=== PATIENT | male | born 1980 | race Caucasian/White ===

== ENCOUNTER → 2022-01-07 17:57 | Outpatient (CLI) | payer OTHER, SELFPAY ==
[2022-01-07 19:01] LABS: COVID19 -Nasal RAPID Negative (Negative)
== END ==
PROVIDERS: PCP Neuromusculoskeletal Medicine & OMM; Visit Provider Nurse Practitioner Family
DX: Z20.822 Contact with and (suspected) exposure to COVID-19 (principal)
CPT/HCPCS: 87635

== ENCOUNTER 2022-01-10 16:36 | Observation (INO) | payer OTHER, SELFPAY ==
[2022-01-01 11:14] VITALS: BMI 35.1
[2022-01-09] VITALS (14 sets, daily range): BP systolic 112–152; BP diastolic 54–98; PULSE 65–94; RESP 10–21; TEMP 36–36.2; O2SAT 93–99; BMI 35.1
--- NOTE | 2022-01-09 | DI.RAD.S_ITS ---
PROCEDURE: XR LUMBAR SPINE 2-3V INDICATIONS: L5-S1 TLIF TECHNIQUE: 3 views of the lumbar spine were acquired. COMPARISON: [facility], MR, MR LUMBAR SPINE WITHOUT CONTRAST, 10/23/2021, 12:09. [facility], CR, XR LUMBAR SPINE WITH OLBIQUES PLUS FLEXION EXTENSION, 09/14/2021, 15:56. FINDINGS: Intraoperative images demonstrating L5-S1 fusion with intervertebral spacer. Hardware is intact with relatively good anatomic alignment. There appears to be trace anterolisthesis of L5 on S1. However, this could be projectional. IMPRESSION: Intraoperative L5-S1 fusion. Dictated by: Moraima Yancey M.D. on 01/09/2022 at 21:12 Approved by: Moraima Yancey M.D. on 01/09/2022 at 21:12
[2022-01-09] MEDS: LACTATED RINGERS 1,000 ML 42 ML IV ×2 (11:00→13:07)
--- NOTE | 2022-01-09 12:09 | PM.PREOP ---
Pre-operative Note COVID-19 COVID-19 status: Negative Result date/Date tested (Pos, Neg/Pending): 01/08/22 Criteria for continued procedure: Expected advancement of disease process, Possibility delay results in more complex future surgery or treatment, Increased loss of function, Continuing or worsening of significant or severe pain, Deterioration of the patient's condition or overall health and Delay expected to result in less-positive ultimate med/surg outcome Interval Note History & Physical reviewed/Exam performed by Physician: Yes Changes to H&P: No
[2022-01-09] MEDS: CEFAZOLIN 2 GM/20 ML SYRINGE IV ×2 (12:51→21:01)
--- NOTE | 2022-01-09 13:01 | SUR.OPER ---
Prone on spine table, head in foam head support, padded chest and pelvic supports, gel pad at knees, lower legs supported by pillows; nipples, genitalia and toes free of pressure, arms secured on foam padded arm boards at <90 degrees abduction. Tape over blanket at thigh secured to table. Gel pad placed between heels.
[2022-01-09] MEDS: BUPIVACAINE 0.25% (PF) 30 ML, EPINEPHrine 0.3 MG INJ (13:09)
[2022-01-09] MEDS: BUPIVACAINE LIPOSOME 266 MG/20 ML VIAL INJ (15:00)
--- NOTE | 2022-01-09 15:26 | PM.OP.1 ---
Operative Date/Time/Diagnoses Date of procedure: 01/09/22 Time of procedure: 12:35 Pre-op diagnosis: 1. L5-S1 spondylolisthesis 2. L5-S1 spinal stenosis with radiculopathy Post-op diagnosis: same Procedure & Clinicians Procedure: 1. L5-S1 Postero-lateral and posterior interbody fusion 2. L5-S1 interbody cage placement. 3. L5-S1 decompressive laminectomy with bilateral facetecomies 4. L5-S1 Posterior non-segmental instrumentation 5. [place] of bone marrow from iliac crest 6. Utilization of microsurgical technique and operating microscope Same procedure as scheduled: Yes Indications: Patient has been having chronic back pain and worsening lumbar radiculopathy. Patient failed multiple conservative management with worsening pain weakness and numbness in her lower extremity. Patient has been having difficulty performing activity of daily living. After discussing risks benefits of treatment options, patient elected proceed with surgery. Surgeon: Gustavo Hartley Bioinformatics Support Specialist: Melanie Schreiber Click Yes if Unassisted: No Anesthesia Type: General Operative Notes Closure Type: primary Specimen(s): none sent Prosthetic devices, grafts, tissues, transplants, or devices: Globus revolve screws, Rise cage Estimated Blood Loss (mL): 50 Blood products transfused: none Procedure in detail: Patient was seen in the preoperative area. Risks and benefits of the surgery was discussed with the patient. Informed consent was obtained from the patient and placed in the chart. Surgical site was marked. Patient was taken to the operative room. General anesthesia was administered. Prophylactic antibiotic was given to the patient less than 30 min before the incision was made. Patient was placed into a prone position on the [place] table. Patient's back was then prepped and draped in the sterile fashion. Time-out was performed at this time. Using AP and lateral C-arm imaging the interval between L5-S1 was identified and marked on patient's back. A 2 inch incision 2 in from midline was made on the left side first. The fascia was incised in line with skin incision. Globus MARS retractors was placed inside the incision and docked onto the L5 lamina. Using microsurgical technique and operating microscope, a L5 laminectomy and L5-S1 facetectomy was performed using a Kerrison rongeur. Patient was found have severe neural foraminal stenosis and required a total facetectomy for decompression which rendered L5-S1 grossly unstable and required a fusion procedure at the same time. The disc space at L5-S1 was identified. And a total diskectomy was performed at L5-S1 level. The endplates were decorticated using a rasp and shaver. The total diskectomy and decortication was performed at L5-S1 level in order to to accomplish a L5-S1 fusion. The local bone from the laminectomy and facetectomy was saved for local bone grafting. After the total diskectomy and decortication was completed, Trifecta bone graft material was combined with local bone that was harvested earlier. At this time, a separate skin is incision was made over the iliac crest. A Jamshidi needle was inserted into the iliac crest through a separate skin incision. 5 cc of bone marrow aspiration was obtained through the separate skin incision using a Jamshidi needle from the iliac crest. The bone marrow aspiration was combined with local bone and the Trifecta bone grafting material. The bone grafting material was placed into the L5-S1 interbody space along with a expandable cage. The cage was expanded to its maximum height using the torque limiting screwdriver. At this time a mirror image incision was made on the left side. The fascia was incised in line with the skin incision. Globus MARS retractor was inserted and docked onto the L5-S1 posterolateral gutter. Using the power drill, posterior-lateral decortication was performed at L5-S1 level until bleeding cortical bone was identified. The remaining bone grafting material was placed into the L5-S1 posterior lateral gutter he order to accomplish posterolateral fusion at the L5-S1 level. Using the double C-arm technique, pedicle screws were placed into the L5-S1 pedicles bilaterally. This was done by placing the Jamshidi needle into the pedicles, then placing the guidewires over the Jamshidi needle, and finally placing the cannulated screws over the guidewires bilaterally. After the pedicle screws were placed, 2 titanium rods was locked into the heads of the pedicle screws using locking caps and torque limiting screwdriver. Throughout reduce her was used to reduce the patient's spondylolisthesis. Partial reduction was accomplished using the hardware and well-maintained using hardware placed. After all the hardware was placed, and confirmed with AP and lateral C-arm imaging, the wound was then irrigated with sterile normal saline and packed with Ray-Rajeev gauze for 3 min to accomplish hemostasis. After the gauze was removed the deep fascia was closed with #1 Vicryl suture. The subcutaneous layer was closed with 2-0 Vicryl. The skin was closed with skin dainel. Patient tolerated the procedure well. There were no complications. Complications: none Post-operative Condition: stable Disposition: PACU Plan for aftercare: Admit to inpatient hospital
[2022-01-09] MEDS: ONDANSETRON 4 MG/2 ML INJ IV (15:42)
[2022-01-09] MEDS: fentaNYL 250 MCG/5 ML INJ IV ×5 (15:42→16:21)
[2022-01-09] MEDS: OXYCODONE IR 5 MG TABLET PO ×2 (16:06→16:35)
--- NOTE | 2022-01-09 16:28 | SUR.PHASEI ---
States that his pain has improved greatly from 14 down to 'a hard 5'. Repositioned multiple times for comfort. Nausea resolved, tolerating PO intake well.
--- NOTE | 2022-01-09 16:39 | SUR.PHASEI ---
Report called to EDWARDO RN. Two white bags going to the room with the patient.
--- NOTE | 2022-01-09 17:01 | SUR.OPER ---
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
[2022-01-09] MEDS: hydrOXYzine pamoate 25 MG CAPSULE 50 MG PO (17:08)
[2022-01-09] MEDS: OXYCODONE IR 5 MG TABLET 10 MG PO (17:36)
[2022-01-09] MEDS: ACETAMINOPHEN 325 MG TABLET 650 MG PO (17:37)
[2022-01-09] MEDS: hydrOXYzine pamoate 25 MG CAPSULE PO (17:37)
[2022-01-09] MEDS: SODIUM CHLORIDE 0.9% 1,000 ML 100 ML IV (17:39)
[2022-01-09] MEDS: HYDROMORPHONE 0.5 MG INJ IV ×2 (18:12→20:26)
[2022-01-09] MEDS: diazePAM 5 MG TABLET PO (18:57)
[2022-01-09] MEDS: OXYCODONE ER 10 MG TAB PO ×2 (18:58→21:02)
--- NOTE | 2022-01-09 19:02 | PC.NURSE ---
pt arrived this evening at 1715 from PACU. VSS, afebrile and weaned to RA. He is A&Ox3. He denies numbness/tingling to legs. Per ON SITE SOIL EVALUATOR awaiting patient to void. He denies n/v and tolerates dinner (reg diet) very well eating 100%. He reports pain ranging from 8-10 shooting up with movement to 10/10 and given PRN oxycodone, hydroxizine and tylenol. Upon reassessment he still c/o pain 8-10/10 and he is given PRN 0.5 mg dilaudid. He is diaphoretic and consistently trying to get into a comfortable position and reports pain still through the roof. MD Hartley notified and per new orders administered dizepam 5mg and oxycontin 10 mg scheduled. Will continue to closely monitor.
[2022-01-09] MEDS: SENNOSIDES 8.6 MG TABLET 17.2 MG PO (21:01)
[2022-01-09] MEDS: DOCUSATE 100 MG CAPSULE PO (21:01)
[2022-01-10] MEDS: OXYCODONE IR 5 MG TABLET 10 MG PO ×6 (00:23→22:34)
[2022-01-10 03:00] VITALS: BP 126/75; PULSE 74; RESP 16; TEMP 36.1; O2SAT 95
[2022-01-10] MEDS: hydrOXYzine pamoate 25 MG CAPSULE PO ×3 (03:09→23:48)
--- NOTE | 2022-01-10 04:21 | PC.NURSE ---
9382 Pt. called states I'm bleeding in my back. Noted moderate amount of blood from his dressing. Reinforced dressing with telfa plus island barrier dressing & ice pack applied. Patient moving in bed frequently C/o pain medicated with 10 mg. of Oxycodone & 25 mg. of Vistaril @ 0304 Rechecked B/P 110/54 & HR 69. Will monitor.
[2022-01-10] MEDS: CEFAZOLIN 2 GM/20 ML SYRINGE IV (05:05)
[2022-01-10] MEDS: SODIUM CHLORIDE 0.9% FLUSH 10 ML IV ×3 (05:59→20:18)
[2022-01-10 07:45] VITALS: BP 130/77; PULSE 78; RESP 16; TEMP 36; O2SAT 95
--- NOTE | 2022-01-10 07:53 | PM.PNPO.1 ---
Subjective Subjective Date Patient Seen: 01/10/22 Time Patient Seen: 07:00 Interval history: Pt sitting up in bed, c/o severe back pain, denies leg pain. Takes only Tylenol at home for pain. Eating and voiding without difficulty. Has been OOB to urinate but has not yet been evaluated by PT. Exam Vital Signs (past 8 hours): - 01/10/22 03:00 Temperature 97.0 F L Pulse Rate 74 Respiratory Rate 16 Blood Pressure 126/75 Pulse Oximetry 95 Oxygen Delivery Method Nasal Cannula Oxygen Flow Rate 0 Narrative Exam Narrative: AA&O x 3. Receiving oxycontin 10 mg BID, oxycodone 10 mg q 3 hrs, acetaminophen 650 q 6 hrs, hydroxyzine 25 mg q 4 hrs, and hydromorphone IV PRN. 5/5 strength in quadriceps, hamstrings, DF, PF, EHL bilaterally. Sensation to light touch intact throughout BLE. Calves soft, compressible, nontender and without palpable cords or masses. [facility] Medical History (Updated 01/01/22 @ 11:39 by Mery Moe RN) ADD (attention deficit disorder) without hyperactivity HTN (hypertension) Kidney stones Surgical History (Updated 01/10/22 @ 07:57 by Melanie Schreiber PA-C) History of excision of pilonidal cyst Hx of appendectomy Hx of hernia repair Hx of lithotripsy Social History household members: family Smoking Status: Former smoker alcohol intake: current Assessment & Plan Post-op Assessment and plan (1) S/P lumbar fusion: Postoperative Procedures: Procedures Operation Date: 01/09/22 11:45 Actual Procedure Side Surgeon p L5-S1 TLIF Not Applicable Gustavo Hartley MD Postoperative day: 1 Postoperative status narrative: Pain poorly controlled at this time. Postoperative plan narrative: Continue multimodal pain control as above; will consider change from hydroxyzine to cyclobenzaprine if no improvement after ambulating today. Ambulate w/ PT. D/c home pending eval by PT and pain management w/ oral meds. Likely d/c tomorrow. Quality VTE Deep Vein Thrombosis/Pulmonary Embolism Present on Admission: No
[2022-01-10 08:29] VITALS: BP 126/75; PULSE 74
[2022-01-10] MEDS: DOCUSATE 100 MG CAPSULE PO ×2 (08:29→20:18)
[2022-01-10] MEDS: lisinopriL 5 MG TABLET PO (08:29)
[2022-01-10] MEDS: OXYCODONE ER 10 MG TAB PO ×2 (08:29→20:18)
[2022-01-10] MEDS: hydroCHLOROthiazide 25 MG TABLET PO (08:36)
--- NOTE | 2022-01-10 12:15 | PT.IIE ---
Current Diagnoses Spondylolisthesis, lumbar region (01/09/22) Spinal stenosis, lumbar region without neurogenic claudication (01/09/22) Arthrodesis status (01/09/22) Surgery Performed Operation Date: 01/09/22 11:45 Actual Procedures p L5-S1 TLIF(Not Applicable) - Gustavo Hartley MD Medical History (Last Updated 01/01/22 @ 11:39 by Mery Moe RN) ADD (attention deficit disorder) without hyperactivity HTN (hypertension) Kidney stones Physical Therapy Inpatient Evaluation/Re-Eval M1 PT/OT-IP Prior Functional Status Start: 01/10/22 12:57 Freq: NEEDED Status: Active Protocol: Document 01/10/22 12:15 AB (Rec: 01/10/22 13:09 AB [email or web address]) Medical Review Prior Functional Status Medical History Reviewed Yes Communication able to make needs known Mobility and Gait pt stated that he is independent with all mobilities and ambulation without AD Social History Household Members friend(s) Living Arrangements House Number of Floors (Floors) One Floor Number of Stairs To Enter/Railing? 2 steps B rails Home Environment Standard Height Toilet,Walk in Shower Home Equipment Hand Held Shower Additional Social History Comment pt stated that he lives with his friend but his friend refuse to assist him; stated that a FWW will not fit into the bedroom; pt stated that he plans to go to a hotel close to his mother 's independent living house and can call his mom if he needs assistance pt does not have any DME M2 PT-IP Current Condition Start: 01/10/22 12:57 Freq: NEEDED Status: Active Protocol: Document 01/10/22 12:15 AB (Rec: 01/10/22 13:09 AB [email or web address]) Physical Therapy Current Condition Current Condition Evaluation Date 01/10/22 Treatment Diagnosis s/p L5S1 TLIF; difficulty in walking Onset Date 01/09/22 M3 PT-IP Subjective Start: 01/10/22 12:57 Freq: NEEDED Status: Active Protocol: Document 01/10/22 12:15 AB (Rec: 01/10/22 13:09 AB [email or web address]) Subjective Physical Therapy Visit Type Type Initial Evaluation Visit Start Time 12:15 Visit Stop Time 12:40 Total Visit Minutes 25 Number of RNFA Visits 0 Physical Therapy Visit Comments Patient Comments agreeable to do PT Therapy Pain Assessment Pain When Pain Assessed At Rest Pain Present Pain Present Pain Reported Location Back Intensity 7 Scale Used Numeric (0 - 10) Pain Management Techniques Apply Heat,Distraction, Modification of Treatment,Re- positioning,Timing of Activity with Medications M4 PT-IP Mobility and Gait Start: 01/10/22 12:57 Freq: NEEDED Status: Active Protocol: Document 01/10/22 12:15 AB (Rec: 01/10/22 13:09 AB [email or web address]) PT-Bed Mobility Assessment Rolling Type of Rolling Log Rolling Level of Assist Minimal Assistance Supine to Sit Supine to Sit Minimal Assistance PT-Transfer Assessment Sit to and From Stand Sit to and from Stand Minimal Assistance,1 Person Assistance,Use of Upper Extremities Equipment Transfer Assistive Device Gait Belt,Front Wheeled Walker Orthotic/Prosthetic Devices or Brace: No Transfers Transfer Destination Chair Transfer Technique ambulated Transfer Ability Level of Assist Minimal Assistance,Use of Upper Extremities Comments Mobility Comments reviewed back precautions with pt and pt requires cues to recall. completed log roll supine to sit min A and max cues for techniques. able to sit on EOB SBA. completed sit to stand min A and cues and ambulated in room using FWW ~ 25 ft initially min A but only CGA towards end of ambulation. pt sat on chair and positioned. set up lunch tray. call light within reach . Gait Assessment Gait Gait Assistance Required: Contact Guard Assist,Minimum Assistance Distance (Feet) 25 Able to Maintain Weight Bearing Status Yes During Gait Assistive Devices Assistive Device Gait Belt,Front Wheeled Walker Orthotic/Prosthetic Devices or Brace: No Gait Deviations General Gait Pattern Decreased Stride Length, Decreased Feet Clearance,Step- to Gait Factors Limiting Gait Function Factors Limiting Gait Function Decreased Activity Tolerance, Decreased Strength,Limited Range of Motion,Pain,Poor Balance,Poor Safety Awareness PT-Balance Assessment Sitting Balance and Reactions Static Sitting Balance Ability Good Dynamic Sitting Balance Ability Good Standing Balance and Reactions Static Standing Balance Ability Fair Dynamic Standing Balance Ability Fair Device Used FWW M5 PT-IP Objective Assessments Start: 01/10/22 12:57 Freq: NEEDED Status: Active Protocol: Document 01/10/22 12:15 AB (Rec: 01/10/22 13:09 AB [email or web address]) Orientation Orientation/Cognition Level of Alertness Alert Orientation Name,Place,Situation Language Function Ability No Deficits Noted Safety Awareness Decreased Safety Awareness Memory Description Short Term Impaired Gross Range of Motion Lower Extremity ROM Assessment Within Functional Limits Strength Lower Extremity Strength Assessment Left Impaired Hip 4-/5 Knee 4-/5 Coordination Assessment Gross Coordination Gross Coordination WNL Sensation Assessment Sensation Gross Sensation WNL Muscle Tone Muscle Tone WNL Yes M6 PT-IP Treatment Start: 01/10/22 12:57 Freq: NEEDED Status: Active Protocol: Document 01/10/22 12:15 AB (Rec: 01/10/22 13:09 AB [email or web address]) Physical Therapy Treatment Education Education Provided Precautions,Weight Bearing Status,Safety M7 PT-IP Assessment and Plan Start: 01/10/22 12:57 Freq: NEEDED Status: Active Protocol: Document 01/10/22 12:15 AB (Rec: 01/10/22 13:09 AB [email or web address]) PT Summary Assessment and Plan Potential Rehabilitation Potential Good Status of Condition at Evaluation Stable Summary Impairments Pain,ROM,Strength,Balance, Coordination,Sensation,Tone, Cognition,Bed Mobility, Transfers,Gait,Activity Tolerance Assessment Summary pt requiring min A with mobility using FWW and sandee not have assistance at home. pt also does not have any DME available at home. stated that he plans to stay on a hotel if needed. pt lives with his friend but his friend refuses to assist him. also stated that a FWW will not fit into his bedroom. will continue to PT to improve mobility independence and if safe, will assess ambulation using a SPC. will continue to assess for safe d/c plan. Goals Bed Mobility Goal Independent Transfer Goal Independent,Front Wheeled Walker Gait Goal Independent,Front Wheel Walker Gait Distance 300 Other Goals improve ambulation using SPC/ without AD mod I 250 ft up/down 2 steps B rails mod I Days to Meet Goals 10 Frequency of Treatment Frequency Of Treatment Twice a Day Treatment Plan Physical Therapy Treatment Plan Bed Mobility Training,Transfer Training,Gait Training, Therapeutic Exercise,Balance Retraining,Post Op Education, Discharge Planning,Hot or Cold Pack,Neuromuscular Re-ed, Coordination Retraining,Manual Therapy Precautions Lumbar Precautions Log Roll,No Twisting,Limit Bending,Lifting Restriction of 10 lbs,Gait Belt above Incisional Area Recommendations To Nursing Amount of Assist Needed 1 Person Assist Discharge Recommendations PT Discharge Recommendations Home with Assistance,Home Health Equipment Needed for Home Before FWW / SPC if not safe without Discharge AD Transportation Needs at Discharge Private Vehicle,Wheelchair/ Cabulance
--- NOTE | 2022-01-10 13:31 | OT.IP.EVAL ---
Current Diagnoses Spondylolisthesis, lumbar region (01/09/22) Spinal stenosis, lumbar region without neurogenic claudication (01/09/22) Arthrodesis status (01/09/22) Surgery Performed Operation Date: 01/09/22 11:45 Actual Procedures p L5-S1 TLIF(Not Applicable) - Gustavo Hartley MD Past Medical History (Last Updated 01/01/22 @ 11:39 by Mery Moe RN) ADD (attention deficit disorder) without hyperactivity History of excision of pilonidal cyst HTN (hypertension) Hx of appendectomy Hx of hernia repair Hx of lithotripsy Kidney stones Surgical History (Last Updated 01/01/22 @ 11:39 by Mery Moe RN) History of excision of pilonidal cyst Hx of appendectomy Hx of hernia repair Hx of lithotripsy Occupational Therapy Inpatient Evaluation/Re-Eval M1 PT/OT-IP Prior Functional Status Start: 01/10/22 12:57 Freq: NEEDED Status: Active Protocol: Document 01/10/22 12:15 AB (Rec: 01/10/22 13:09 AB [id number]) Medical Review Prior Functional Status Medical History Reviewed Yes Communication able to make needs known Mobility and Gait pt stated that he is independent with all mobilities and ambulation without AD Social History Household Members friend(s) Living Arrangements House Number of Floors (Floors) One Floor Number of Stairs To Enter/Railing? 2 steps B rails Home Environment Standard Height Toilet,Walk in Shower Home Equipment Hand Held Shower Additional Social History Comment pt stated that he lives with his friend but his friend refuse to assist him; stated that a FWW will not fit into the bedroom; pt stated that he plans to go to a hotel close to his mother 's independent living house and can call his mom if he needs assistance pt does not have any DME M2 OT-IP Current Condition Start: 01/10/22 13:08 Freq: Status: Active Protocol: Document 01/10/22 11:07 [facility] (Rec: 01/10/22 13:31 [facility] [id number]) Occupational Therapy Current Condition Current Condition Evaluation Date 01/10/22 Treatment Diagnosis S/p L5-S1 TLIF Diagnosis Onset Date 01/09/22 Post Operative Precautions Lumbar Precautions Log Roll,No Twisting,Limit Bending,Lifting Restriction of 10 lbs,Gait Belt above Incisional Area M3 OT- IP Subjective and Pain Start: 01/10/22 13:08 Freq: Status: Active Protocol: Document 01/10/22 11:07 [facility] (Rec: 01/10/22 13:31 [facility] [id number]) OT- Subjective Occupational Therapy Visit Type Type Initial Evaluation Visit Start Time 11:07 Visit Stop Time 11:34 Total Visit Minutes 27 Occupational Therapy Visit Comments Patient Comments Pt agreed to get up. Patient/Caregiver Goals To go home, but unsure if he would rather go to another place as pt states his ex- father in law will not be helping him or know how to assist. OT Pain Assessment Pain When Pain Assessed During Mobility Pain Present Pain Present Pain Reported Location Back Intensity 6 M4 OT- IP ADL's Start: 01/10/22 13:08 Freq: Status: Active Protocol: Document 01/10/22 11:07 [facility] (Rec: 01/10/22 13:31 [facility] [id number]) OT [id number] Comments OT Self-Feeding Comments Not at meal time. OT ADL-Grooming General Evaluation Grooming Ability Standby Assistance OT ADL-Oral Care Comments Oral Care Comments VC to hinge at hips or spit into a cup to best follow his back precautions. OT ADL-Dressing General Eval Lower Body Dressing Ability Standby Assistance Comments OT Dressing Comments Pt able to comfortable cross his legs over to melly his underwear over his feet. OT ADL-Toileting Comments OT Toileting Comments Pt able to stand with FWW to use the toilet. Pt able to sit on the toilet, but was better to stand to wipe to best follow his back precautions. OT ADL-Bathing Comments OT Bathing Comments Pt not wanting to shower at this time. Pt would benefit from a shower chair. M5 OT- IP IADL's Start: 01/10/22 13:08 Freq: Status: Active Protocol: Document 01/10/22 11:07 [facility] (Rec: 01/10/22 13:31 [facility] [id number]) OT-Instrumental Activities of Daily Living Home Safety Awareness Home Safety Comments Pt now realizing that he will need assist at home, and feel his current situation of his ex-father in law sandee not help him due to per pt, He is an old time gurdeep that feels like I should just be able to take it and do it myself. At this time as pt a little groggy and not able to focus well at times best to have someone reliable to assist pt. Pt has ADHD and requesting his medications. M6 OT- IP Functional Cognition Start: 01/10/22 13:08 Freq: Status: Active Protocol: Document 01/10/22 11:07 [facility] (Rec: 01/10/22 13:31 [facility] [id number]) Cognitive Factors Limiting Selfcare Function Cognitive Ability Level of Alertness Alert Patient Orientation Name,Place,Situation Attention Span Ability Capable of Focused Attention, Capable of Sustained Attention Ability to Follow Commands Able to Follow One Step Commands with Increased Time, Able to Follow One Step Commands with Repetition Safety Awareness Decreased Ability to Apply Precautions,Underestimates Need for Assistance Cognitive Comments Cognitive Assessment Comments Pt needing vc for follow his back precautions and take his time. Pt states does better with written materials versus being told what to do. Pt needing repeated vc for back precautions as tends to twist his back instead of moving his head and body together to look behind him. OT- Vision and Hearing OT- Hearing Assessment OT- Hearing Assessment WFL OT- Vision Assessment Visual Acuity Glasses All The Time M7 OT- IP Mobility and Balance Start: 01/10/22 13:08 Freq: Status: Active Protocol: Document 01/10/22 11:07 [facility] (Rec: 01/10/22 13:31 [facility] [id number]) OT- Bed Mobility Assessment Rolling Type of Rolling Roll to Left Level of Assistance Standby Assistance Supine to Sit Supine to Sit Assist Contact Guard Assistance Sit to Supine Sit to Supine Assist Minimal Assistance Scooting Scooting to Edge of Bed Standby Assistance OT-Transfer Assessment Sit to and From Stand Sit to and from Stand Minimal Assistance,Moderate Assistance Transfers Transfer Ability Contact Guard Assistance Technique Transfer Destination Bed,Toilet Transfer Technique Stand Step Pivot Devices Transfer Assistive Devices Gait Belt,Front Wheeled Walker Comments Mobility Comments Pt tend to not hinge at his hips while coming to stand. Pt flexes/emmett at his knees and then comes to stand. Pt states that that is how he has been coming to stand to compensate for his back pain. Educated best to hinge at his hips or best to have one hand on the FWW and come to stand. OT- Balance Assessment Sitting Balance and Reactions Static Sitting Balance Ability Good Dynamic Sitting Balance Ability Good Standing Balance and Reactions Static Standing Balance Ability Fair Dynamic Standing Balance Ability Fair M9 OT- IP Assessment and Plan Start: 01/10/22 13:08 Freq: Status: Active Protocol: Document 01/10/22 11:07 [facility] (Rec: 01/10/22 13:31 [facility] [id number]) OT Summary Assessment and Plan Potential Rehabilitation Potential Good Analytic Complexity at Evaluation Low Summary OT Impairments Pain,Functional Cognition, Functional Mobility,Dressing, Toileting,Bathing,Toilet Transfers,Shower Transfers Progress Towards Goals Progressing Toward Goals Assessment Summary Pt low complexity and main barriers are pain, needing cues to incorporate back precautions for ADl and mobility needs. Pt states his current living situation may not work for his as it is a farm house and would not be able to use a FWW if needed. In addition his ex-father in law per pt , will probably not help him. Pt states to look into other options for places to stay. Pt will benefit from assist at home or where ever he goes to help with IADL needs and reminders for back precautions for his safety. Goals Grooming Goal Independent Dressing Goal Independent Toileting Goal Independent Bathing Goal Independent Toilet Transfer Goal Independent Shower Transfer Goal Independent Days to Meet Goals 5 Frequency of Treatment Frequency Of Treatment Once a Day Treatment Plan OT Treatment Plan ADL Training,Functional Cognition Training,Functional Mobility,Patient/Family Education,Discharge Planning Other Treatment Recommendations and Next shower Treatment Focus Discharge Recommendations OT Discharge Recommendations Home with Assistance Home Equipment Needs shower chair, FWW? Transportation Needs at Discharge Private Vehicle
[2022-01-10] MEDS: ACETAMINOPHEN 325 MG TABLET 650 MG PO (14:32)
--- NOTE | 2022-01-10 15:31 | PT.IPTN ---
Current Diagnoses Spondylolisthesis, lumbar region (01/10/22) Spinal stenosis, lumbar region without neurogenic claudication (01/10/22) Arthrodesis status (01/10/22) Surgery Performed Operation Date: 01/09/22 11:45 Actual Procedures p L5-S1 TLIF(Not Applicable) - Gustavo Hartley MD Physical Therapy Treatment Note M2 PT-IP Current Condition Start: 01/10/22 12:57 Freq: NEEDED Status: Active Protocol: Document 01/10/22 12:15 AB (Rec: 01/10/22 13:09 AB [id number]) Physical Therapy Current Condition Current Condition Evaluation Date 01/10/22 Treatment Diagnosis s/p L5S1 TLIF; difficulty in walking Onset Date 01/09/22 M3 PT-IP Subjective Start: 01/10/22 12:57 Freq: NEEDED Status: Active Protocol: Document 01/10/22 15:15 KS (Rec: 01/10/22 16:46 KS [id number]) Subjective Physical Therapy Visit Type Type Treatment Note Visit Start Time 15:15 Visit Stop Time 15:31 Total Visit Minutes 16 Number of DEPUTY TREASURER Visits 1 Physical Therapy Visit Comments Patient Comments agreeable to do PT Therapy Pain Assessment Pain When Pain Assessed At Rest Pain Present Pain Present Pain Reported Location Back Intensity 5 Scale Used Numeric (0 - 10) Pain Management Techniques Modification of Treatment,Re- positioning,Timing of Activity with Medications M4 PT-IP Mobility and Gait Start: 01/10/22 12:57 Freq: NEEDED Status: Active Protocol: Document 01/10/22 15:15 KS (Rec: 01/10/22 16:46 KS [id number]) PT-Bed Mobility Assessment Rolling Type of Rolling Log Rolling,Roll to Right Level of Assist Contact Guard Assistance Supine to Sit Supine to Sit Contact Guard Assistance,1 Person Assistance,Bedrails Sit to Supine Sit to Supine Contact Guard Assistance,1 Person Assistance,Bedrails Scooting Scooting to Edge of Bed Contact Guard Assistance PT-Transfer Assessment Sit to and From Stand Sit to and from Stand Contact Guard Assistance,1 Person Assistance,Use of Upper Extremities Equipment Transfer Assistive Device Gait Belt,Front Wheeled Walker Orthotic/Prosthetic Devices or Brace: No Transfers Transfer Destination Bed Transfer Technique ambulated w/ FWW Transfer Ability Level of Assist Contact Guard Assistance,1 Person Assistance,Use of Upper Extremities Comments Mobility Comments Pt in bed upon arrival and able to recall 3/3 spinal precautions. CGA and cues for sequencing for logroll and sidelying<>sit. CGA for scooting EOB and sit<>Stand w/ FWW, cues for hand placement. Pt then ambulated ~80 ft around room w/ FWW CGA. Pt w/ good use of FWW and may be appropriate to progress to SPC tomorrow. Pt reported increased pain in BLE following ambulation and requested to get back into bed . CGA and cues to maintain neutral spine for sit<> Sidelying. Pt able to safely reposition himself in bed and left in bed w/ alarm on and all needs in reach. Gait Assessment Gait Gait Assistance Required: Contact Guard Assist,1 Person Assist Distance (Feet) 80 Able to Maintain Weight Bearing Status Yes During Gait Assistive Devices Assistive Device Gait Belt,Front Wheeled Walker Orthotic/Prosthetic Devices or Brace: No Gait Deviations General Gait Pattern Decreased Stride Length, Decreased Feet Clearance,Step- to Gait Factors Limiting Gait Function Factors Limiting Gait Function Decreased Activity Tolerance, Decreased Strength,Limited Range of Motion,Pain,Poor Balance,Poor Safety Awareness Comments Gait Comments Pt ambulated 80 ft w/ FWW CGA w/ good upright posture and forward gaze. Will attempt SPC tomorrow as requested by patient. Stair Climbing Assessment Comments Stair Climbing Comments Did not assess, pt w/ 2 platform steps to get into home. Will attempt tomorrow. PT-Balance Assessment Sitting Balance and Reactions Static Sitting Balance Ability Good Dynamic Sitting Balance Ability Good Standing Balance and Reactions Static Standing Balance Ability Good Dynamic Standing Balance Ability Fair Device Used FWW M5 PT-IP Objective Assessments Start: 01/10/22 12:57 Freq: NEEDED Status: Active Protocol: Document 01/10/22 12:15 AB (Rec: 01/10/22 13:09 AB [id number]) Orientation Orientation/Cognition Level of Alertness Alert Orientation Name,Place,Situation Language Function Ability No Deficits Noted Safety Awareness Decreased Safety Awareness Memory Description Short Term Impaired Gross Range of Motion Lower Extremity ROM Assessment Within Functional Limits Strength Lower Extremity Strength Assessment Left Impaired Hip 4-/5 Knee 4-/5 Coordination Assessment Gross Coordination Gross Coordination WNL Sensation Assessment Sensation Gross Sensation WNL Muscle Tone Muscle Tone WNL Yes M6 PT-IP Treatment Start: 01/10/22 12:57 Freq: NEEDED Status: Active Protocol: Document 01/10/22 15:15 KS (Rec: 01/10/22 16:46 KS [id number]) Physical Therapy Treatment Education Education Provided Precautions,Weight Bearing Status,Safety M7 PT-IP Assessment and Plan Start: 01/10/22 12:57 Freq: NEEDED Status: Active Protocol: Document 01/10/22 15:15 KS (Rec: 01/10/22 16:46 KS [id number]) PT Summary Assessment and Plan Potential Rehabilitation Potential Good Status of Condition at Evaluation Stable Summary Impairments Pain,ROM,Strength,Balance, Coordination,Sensation,Tone, Cognition,Bed Mobility, Transfers,Gait,Activity Tolerance Assessment Summary Pt CGA for all bed mobility, transfers, and ambulation today. Able to recall spinal precautions and demonstrated good use of FWW and may be able to progress to SPC. Will trial tomorrow. Pt w/ increased pain w/ mobility and limited by pain and low activity tolerance. Will need to complete steps prior to d/c if going home. ould benefit from outpatient PT when appropriate to improve functional mobility and strength. Goals Bed Mobility Goal Independent Transfer Goal Independent,Front Wheeled Walker Gait Goal Independent,Front Wheel Walker Gait Distance 300 Other Goals improve ambulation using SPC/ without AD mod I 250 ft up/down 2 steps B rails mod I Days to Meet Goals 10 Frequency of Treatment Frequency Of Treatment Twice a Day Treatment Plan Physical Therapy Treatment Plan Bed Mobility Training,Transfer Training,Gait Training, Therapeutic Exercise,Balance Retraining,Post Op Education, Discharge Planning,Hot or Cold Pack,Neuromuscular Re-ed, Coordination Retraining,Manual Therapy Precautions Lumbar Precautions Log Roll,No Twisting,Limit Bending,Lifting Restriction of 10 lbs,Gait Belt above Incisional Area Recommendations To Nursing Amount of Assist Needed 1 Person Assist Discharge Recommendations PT Discharge Recommendations Home with Assistance,Home Health Equipment Needed for Home Before FWW / SPC if not safe without Discharge AD Transportation Needs at Discharge Private Vehicle,Wheelchair/ Cabulance
--- NOTE | 2022-01-10 15:58 | CM.DANOTE ---
Patient is a 42 yo male who was admitted on 01/09/22 for TLIF. Pt currently does not have active insurance and his PCP is [facility]. EMR was reviewed. Per Ortho MD, pt tolerated procedure well and is eating and voiding independently but still some pain management issues. PT/OT recommending discharge home with assist and likely HH. Per Admission Counselors, pt's [facility] is now inactive and pt paying for half the bill himself while awaiting for [employer] insurance to kick in. SW met briefly bedside with pt as he had just gotten his pain medication and could not stay awake. He confirms he lives in [place] with a friend who will not provide any assist and plan is to d/c to hotel near his mother so she can assist if needed. SW discussed that if pt is private pay with no insurance than HH likely not an option at d/c but would check in with him tomorrow after further PT/OT for needs. Plan: SW to follow for plan of d/c to hotel with mom assist and pt's lack of insurance is a barrier to HH. ROGELIO Cui Discharge Planning/Care Management CM Discharge Assessment Start: 01/10/22 15:57 Freq: Status: Active Protocol: Document 01/10/22 15:57 BF (Rec: 01/10/22 15:58 BF [id number]) Discharge Planning Assessment Assigned Mosquito Sprayer ROGELIO Mcpherson DPOA/Assigned Designee Name none, informally mother Advance Directives? No Advance Directives on File No History Provided By Patient,Medical Record Has Patient been admitted in last 30 No days? Prior Living Arrangements House Household Members friend(s) Type of transporation used prior to Drives own vehicle admit Independent with ADL's Yes Is patient alert and oriented? Yes Caregiver for Another No Patient/Family Preference Home with Home Health Barriers to Discharge Yes Comment Self Pay Discharge Plan Home Community Services Physical Therapy Transportation Arrangement Pt's mother likely to transport at d/c Additional Comment Pending further PT/OT Review Status In Process Please Provide Date Initial DC 01/10/22 Assessment Was Performed Next Review Type Continued Stay Review Pre-Anesthesia Assessment Start: 01/01/22 11:14 Freq: Status: Complete Protocol: Document 01/01/22 11:14 CAB (Rec: 01/01/22 11:49 CAB [id number]) Pre-Anesthesia Assessment Preferred Name Osvaldo Patient Information Reviewed Via Phone Assessment Assessment Completed With Patient Comment Labs done per pt, COVID screen will be done at [facility] Primary Care Provider [facility] Seen Specialist in Last 12 Months Yes Specialist Seen Orthopedist Primary Language Kyrgyz Cognos Administrator Required No Height 182.88 cm Weight 117.48 kg Body Mass Index (BMI) 35.1 Hearing Ability Normal Visual Assist Glasses Dentition Type Teeth, Natural Present,Teeth, Missing Barriers to Learning None Hx Anesthesia Reactions No Hx Family Anesthesia Reaction No Hx Malignant Hyperthermia No Hx Blood Transfusions No Anesthesia Review Requested No 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 No Does patient have GOODMAN/SOB No Hx Sleep Apnea No Currently Taking a Beta Debbie No Can You Climb a Flight of Stairs Without Yes SOB Hx Chest Pain No Hx SOB No Hx Syncope or Dizziness No Anti-Coagulant Therapy No Has a Bpm Architect No Cardiac Testing No Hx Pacemaker/ICD No Pacemaker Rep Required? No Cardiac Clearance Received Not Applicable Diet Type At Home Regular dysphagia No Urinary Catheter Present No Hx Urinary Self Catheterization No Diabetes No Hx Drug Resistant Organism No Presence of External or Internal Medical No Devices Have you had any close contact with No someone diagnosed with COVID-19? Received a COVID vaccine? No Marital Status Single Lives With family Prior Living Arrangements House Number of Floors (Floors) One Floor Support System Family Does the Patient Have Assistance After Yes Surgery Patient Discharge Plan Description Return Home Comment Pt not advised on length of stay per surgeon Feels Safe in Current Environment Yes Been Physically Hurt or Threatened By a No Person in Current Environment Do you have thoughts of harming yourself None or others? Are you currently considering suicide? No Do you have a plan to hurt yourself or No Plan others? Do You Have Any Spiritual Beliefs That No May Affect Your HC Choices? Do You Have Any Cultural Practices That No May Affect Your HC Choices? Comment Synagogue Who Can We Speak to About Patient's Care Family, friends Identifying Code for Release of Patient Declines to issue Information Health Care Proxy/Next of Kin Dayo mario) Health Care Proxy Emergency Contact Name Dayo (brother) Emergency Contact Advance Directives? No Power of Customer Response Representative No PAC Instructions Durable medical equipment, Medications to take/avoid, Nasal antibiotic,No ETOH/ petroleum product on skin DOS, NPO,Pre-surgical wash,Sturdy shoes/comfortable clothes,Do not bring valuables and remove jewelry
[2022-01-10] MEDS: HYDROMORPHONE 0.5 MG INJ IV (19:01)
[2022-01-10] MEDS: SENNOSIDES 8.6 MG TABLET 17.2 MG PO (20:18)
[2022-01-10 20:46] VITALS: BP 106/55; PULSE 74; RESP 18; TEMP 37.3; O2SAT 97
[2022-01-11 01:12] VITALS: BP 112/65; PULSE 66; RESP 17; TEMP 36.7; O2SAT 94
[2022-01-11] MEDS: OXYCODONE IR 5 MG TABLET 10 MG PO ×2 (01:29→04:39)
[2022-01-11] MEDS: ACETAMINOPHEN 325 MG TABLET 650 MG PO (01:30)
[2022-01-11] MEDS: hydrOXYzine pamoate 25 MG CAPSULE PO (04:39)
[2022-01-11] MEDS: HYDROMORPHONE 0.5 MG INJ IV ×2 (05:48→08:46)
[2022-01-11] MEDS: SODIUM CHLORIDE 0.9% FLUSH 10 ML IV ×2 (05:50→08:40)
--- NOTE | 2022-01-11 06:41 | PC.NURSE ---
Pt. reported the Dilaudid works a lot better for my pain. Pain level still @ 10 after medicated with 25 mg of Vistaril PO & 10 mg. of Percolone. Requested & admin. 0.5 mg. Dilaudid IVP when re-assessed pain level was down to 5, settled to get some sleep now. Dressing to his lower back had moderate amount of dried blood. Dressing was changed no erythema, noted to the daniel site & incision. Incision well approximated no bleeding noted. Will report to day RN & monitor.
[2022-01-11 08:00] VITALS: BP 126/77; PULSE 78; RESP 16; TEMP 36.9; O2SAT 95
--- NOTE | 2022-01-11 08:00 | PT.IPTN ---
Current Diagnoses Spondylolisthesis, lumbar region (01/10/22) Spinal stenosis, lumbar region without neurogenic claudication (01/10/22) Arthrodesis status (01/10/22) Surgery Performed Operation Date: 01/09/22 11:45 Actual Procedures p L5-S1 TLIF(Not Applicable) - Gustavo Hartley MD Physical Therapy Treatment Note M2 PT-IP Current Condition Start: 01/10/22 12:57 Freq: NEEDED Status: Active Protocol: Document 01/11/22 07:39 SP (Rec: 01/11/22 08:21 SP [id number]) Physical Therapy Current Condition Current Condition Evaluation Date 01/10/22 Treatment Diagnosis s/p L5S1 TLIF; difficulty in walking Onset Date 01/09/22 M3 PT-IP Subjective Start: 01/10/22 12:57 Freq: NEEDED Status: Active Protocol: Document 01/11/22 07:39 SP (Rec: 01/11/22 08:21 SP [id number]) Subjective Physical Therapy Visit Type Type Treatment Note Visit Start Time 07:39 Visit Stop Time 08:00 Total Visit Minutes 21 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 Therapy Pain Assessment Pain When Pain Assessed At Rest Pain Present Pain Present Pain Reported Location Back Intensity 6 Scale Used Numeric (0 - 10) Pain Management Techniques Modification of Treatment,Re- positioning,Timing of Activity with Medications M4 PT-IP Mobility and Gait Start: 01/10/22 12:57 Freq: NEEDED Status: Active Protocol: Document 01/11/22 07:39 SP (Rec: 01/11/22 08:21 SP [id number]) PT-Bed Mobility Assessment Rolling Type of Rolling Log Rolling,Bilateral Level of Assist Independent Supine to Sit Supine to Sit Independent Sit to Supine Sit to Supine Independent Scooting Scooting to Edge of Bed Independent PT-Transfer Assessment Sit to and From Stand Sit to and from Stand Standby Assistance,Use of Upper Extremities Equipment Transfer Assistive Device None,Gait Belt,Straight Cane Orthotic/Prosthetic Devices or Brace: No Transfers Transfer Destination Bed,Toilet Transfer Technique ambulated w/ SPC and none Transfer Ability Level of Assist Standby Assistance,Contact Guard Assistance,Use of Upper Extremities Comments Mobility Comments Pt elevated supine when arrived. complete LR R, R SL > sit, scoot to EOB I with good demonstration spinal precautions. Sit>Stand SBA no AD, walked further distance to stairs, completed stairs and back approx 160 ft, difficulty patterning SPC 2pt gait with ed, stable no sway. Gait again to stairs and back no AD, SBA stable no sway included dynamic head turns no LOB or sway. Static balance ANA M stable no sway EC 30s and tandem EC little sway 30sec bu tself recovery. Pt ambulated to bathroom and back to EOB, used toilet seated then self pericare voided. Walked to sink wash hands stable no support UE on sink. REturned to bed completed sit>supine, cue x1 for proper log roll with good carryover. Pt had call light and all needs in reach before left. Pt is ok return home with mom/ friend to help if needed when medically cleared. Gait Assessment Gait Gait Assistance Required: Standby Assistance Distance (Feet) 220 Able to Maintain Weight Bearing Status Yes During Gait Assistive Devices Assistive Device None,Gait Belt,Straight Cane Orthotic/Prosthetic Devices or Brace: No Gait Deviations General Gait Pattern Antalgic Factors Limiting Gait Function Factors Limiting Gait Function Limited Range of Motion,Pain Comments Gait Comments See mobility comments. Stair Climbing Assessment Evaluation Level of Assist On Stairs Standby Assistance,Contact Guard Assistance Devices Stair Climbing Assistive Devices Straight Cane,Left Railing Technique/Endurance Stair Climbing Direction Ascend and Descend Stair Climbing Technique Step Over Step,Step to Step Number of Steps Climbed 3 Stair Climbing Set # Repetitions (reps) 1 Comments Stair Climbing Comments COmpleted receiprocal step ascend, step to descending. CG initial step then SBA with L HR and SPC on R. PT-Balance Assessment Sitting Balance and Reactions Static Sitting Balance Ability Normal Dynamic Sitting Balance Ability Normal Standing Balance and Reactions Static Standing Balance Ability Good Dynamic Standing Balance Ability Good Device Used no AD Balance Tests Pan Balance Test Score EC: NBOS stable no sway, tandem sway but self recovery Comments Other Balance Tests/Deviations/Treatment See mobility comments : M5 PT-IP Objective Assessments Start: 01/10/22 12:57 Freq: NEEDED Status: Active Protocol: Document 01/10/22 12:15 AB (Rec: 01/10/22 13:09 AB [id number]) Orientation Orientation/Cognition Level of Alertness Alert Orientation Name,Place,Situation Language Function Ability No Deficits Noted Safety Awareness Decreased Safety Awareness Memory Description Short Term Impaired Gross Range of Motion Lower Extremity ROM Assessment Within Functional Limits Strength Lower Extremity Strength Assessment Left Impaired Hip 4-/5 Knee 4-/5 Coordination Assessment Gross Coordination Gross Coordination WNL Sensation Assessment Sensation Gross Sensation WNL Muscle Tone Muscle Tone WNL Yes M6 PT-IP Treatment Start: 01/10/22 12:57 Freq: NEEDED Status: Active Protocol: Document 01/11/22 07:39 SP (Rec: 01/11/22 09:36 SP [id number]) Physical Therapy Treatment Education Education Provided Precautions,Weight Bearing Status,Safety M7 PT-IP Assessment and Plan Start: 01/10/22 12:57 Freq: NEEDED Status: Active Protocol: Document 01/11/22 07:39 SP (Rec: 01/11/22 09:36 SP [id number]) PT Summary Assessment and Plan Potential Rehabilitation Potential Good Status of Condition at Evaluation Stable Summary Impairments Pain,ROM,Strength,Balance, Coordination,Sensation,Tone, Cognition,Bed Mobility, Transfers,Gait,Activity Tolerance Progress Towards Goals Progressing Toward Goals Assessment Summary Pt met PT goals. I bed mob via log roll, stationary/ dynamic balance SBA see mobility for details, gait SPC initially SBA then no AD SBA with head turn stable slow moving but no sway or LOB. Complete stair mgt L HR has at friend's home, SBA stable 3 stairs. Pt is ok to return home with friend/ mom to assist as needed medically cleared, HHPT vsoutpt PT to progress dynamic balance toward PLOF. Goals Bed Mobility Goal Independent Transfer Goal Independent,Front Wheeled Walker Gait Goal Independent,Front Wheel Walker Gait Distance 300 Other Goals improve ambulation using SPC/ without AD mod I 250 ft up/down 2 steps B rails mod I Days to Meet Goals 10 Frequency of Treatment Frequency Of Treatment Twice a Day Treatment Plan Physical Therapy Treatment Plan Bed Mobility Training,Transfer Training,Gait Training, Therapeutic Exercise,Balance Retraining,Post Op Education, Discharge Planning,Hot or Cold Pack,Neuromuscular Re-ed, Coordination Retraining,Manual Therapy Other Recommendations and Next Treatment progressive dynamic balance no Focus AD Precautions Lumbar Precautions Log Roll,No Twisting,Limit Bending,Lifting Restriction of 10 lbs,Gait Belt above Incisional Area Other Precautions good recall 3/3 and demonstration Recommendations To Nursing Amount of Assist Needed Independent,Standby Assistance Discharge Recommendations PT Discharge Recommendations Home with Assistance,Home Health,Outpatient PT Equipment Needed for Home Before no AD Discharge Transportation Needs at Discharge Private Vehicle
[2022-01-11] MEDS: DOCUSATE 100 MG CAPSULE PO (08:23)
[2022-01-11 08:24] VITALS: BP 126/77; PULSE 78
[2022-01-11] MEDS: hydroCHLOROthiazide 25 MG TABLET PO (08:24)
[2022-01-11] MEDS: lisinopriL 5 MG TABLET PO (08:24)
[2022-01-11] MEDS: OXYCODONE ER 10 MG TAB PO (08:25)
[2022-01-11] MEDS: BISACODYL 10 MG SUPP PR (08:40)
--- NOTE | 2022-01-11 09:39 | OT.IP.TRT ---
Current Diagnoses Spondylolisthesis, lumbar region (01/10/22) Spinal stenosis, lumbar region without neurogenic claudication (01/10/22) Arthrodesis status (01/10/22) Surgery Performed Operation Date: 01/09/22 11:45 Actual Procedures p L5-S1 TLIF(Not Applicable) - Gustavo Hartley MD Occupational Therapy Treatment Note M2 OT-IP Current Condition Start: 01/10/22 13:08 Freq: Status: Active Protocol: Document 01/10/22 11:07 [facility] (Rec: 01/10/22 13:31 [facility] [id number]) Occupational Therapy Current Condition Current Condition Evaluation Date 01/10/22 Treatment Diagnosis S/p L5-S1 TLIF Diagnosis Onset Date 01/09/22 Post Operative Precautions Lumbar Precautions Log Roll,No Twisting,Limit Bending,Lifting Restriction of 10 lbs,Gait Belt above Incisional Area M3 OT- IP Subjective and Pain Start: 01/10/22 13:08 Freq: Status: Active Protocol: Document 01/11/22 09:40 [facility] (Rec: 01/11/22 09:46 [facility] [id number]) OT- Subjective Occupational Therapy Visit Type Type Treatment Note Visit Start Time 09:25 Visit Stop Time 09:39 Total Visit Minutes 14 Occupational Therapy Visit Comments Patient Comments Pt agreed to get dressed and practice log rolling. Patient/Caregiver Goals TO be able to work again. OT Pain Assessment Pain When Pain Assessed During Mobility Pain Present Pain Present Pain Reported M4 OT- IP ADL's Start: 01/10/22 13:08 Freq: Status: Active Protocol: Document 01/11/22 09:40 [facility] (Rec: 01/11/22 09:46 [facility] [id number]) OT ADL-Dressing General Eval Upper Body Dressing Ability Independent Lower Body Dressing Ability Independent OT ADL-Bathing Comments OT Bathing Comments Educated to pt to have someone cover his dressing when showering as he is not able to see it himself. M7 OT- IP Mobility and Balance Start: 01/10/22 13:08 Freq: Status: Active Protocol: Document 01/11/22 09:40 [facility] (Rec: 01/11/22 09:46 [facility] [id number]) OT- Bed Mobility Assessment Supine to Sit Supine to Sit Assist Standby Assistance Sit to Supine Sit to Supine Assist Standby Assistance OT-Transfer Assessment Sit to and From Stand Sit to and from Stand Independent Transfers Transfer Ability Independent Technique Transfer Destination Bed,Chair Devices Transfer Assistive Devices None Comments Mobility Comments SBA in the room. Pt tends to twist during log rolling and emphasized to keep his left hand forwards while lying down on his right side to help prevent him from twisting. Pt tends to want to keep a pillow under his lumber region however gets in the way for log rolling. Pt able to try without the extra pillow and was much more successful for log rolling and not twisting. Pt states to burr picker a cane later. OT- Balance Assessment Sitting Balance and Reactions Static Sitting Balance Ability Normal Dynamic Sitting Balance Ability Good Standing Balance and Reactions Static Standing Balance Ability Good Dynamic Standing Balance Ability Fair M9 OT- IP Assessment and Plan Start: 01/10/22 13:08 Freq: Status: Active Protocol: Document 01/11/22 09:40 [facility] (Rec: 01/11/22 09:46 [facility] [id number]) OT Summary Assessment and Plan Potential Rehabilitation Potential Good Analytic Complexity at Evaluation Low Summary OT Impairments Pain,Functional Cognition, Functional Mobility,Dressing, Toileting,Bathing,Toilet Transfers,Shower Transfers Progress Towards Goals Progressing Toward Goals Assessment Summary Able to repetitively practice log rolling with pt as pt tends to twist at times. Pt looking to be discharge today. Discharge Recommendations OT Discharge Recommendations Home with Assistance Home Equipment Needs Shower chair, [facility] Transportation Needs at Discharge Private Vehicle
[2022-01-11] MEDS: MAG HYDROX/ALUM/SIMETH 30 ML UDC PO (10:15)
--- NOTE | 2022-01-11 10:21 | PC.NURSE ---
Pt A&Ox3 VSS, afebrile on RA. He is ambulating without difficulty in his room independently and with PT this a.m. He is cleared for discharge home. He has good po intake but c/o abdominal discomfort this a.m. noted slight distention and give bisacodyl suppository for reports of feeling constipated. He also c/o gas pain in his abdomen and is given maalox per request prn. Encouraged patient to consider picking up a laxative when he picks up his medications on his way home and to ambulate as well as drink a lot of water and eat foods high in fiber. Patient verbalizes understanding of discharge medications, site care instructions, signs and symptoms of infection, worsening symptoms, activity restrictions as well as follow up appointment. He is escorted via wheel chair by RODERICK to private vehicle with his mother for discharge home today at 1025.
--- NOTE | 2022-01-11 12:37 | PM.DS.1 ---
History of Present Illness History of Present Illness Date Patient Seen: 01/11/22 Time Patient Seen: 07:00 Chief complaint: TLIF *OPB* Narrative: Operative Date/Time/Diagnoses Date of procedure: 01/09/22 Time of procedure: 12:35 Pre-op diagnosis: 1. L5-S1 spondylolisthesis 2. L5-S1 spinal stenosis with radiculopathy Post-op diagnosis: same Procedure & Clinicians Procedure: 1. L5-S1 Postero-lateral and posterior interbody fusion 2. L5-S1 interbody cage placement. 3. L5-S1 decompressive laminectomy with bilateral facetecomies 4. L5-S1 Posterior non-segmental instrumentation 5. [place] of bone marrow from iliac crest 6. Utilization of microsurgical technique and operating microscope Same procedure as scheduled: Yes Indications: Patient has been having chronic back pain and worsening lumbar radiculopathy. Patient failed multiple conservative management with worsening pain weakness and numbness in her lower extremity.? Patient has been having difficulty performing activity of daily living.? After discussing risks benefits of treatment options, patient elected proceed with surgery. Surgeon: Gustavo Hartley Editor Producer: Melanie Schreiber Click Yes if Unassisted: No Anesthesia Type: General Operative Notes Closure Type: primary Specimen(s): none sent Prosthetic devices, grafts, tissues, transplants, or devices: Globus revolve screws, Rise cage Estimated Blood Loss (mL): 50 Blood products transfused: none Discharge Providers Provider Date of admission: 01/09/22 16:36 Discharge Date: 01/11/22 Primary care physician: Forest Milton DO, MS Consults: 01/09/22 17:18 Consult to Occupational Therapy Evaluate & Treat Comment: Physician Instructions: Evaluate and treat Consult to Physical Therapy Evaluate & Treat Comment: Physician Instructions: Evaluate and Treat Discharge provider: Melanie Schreiber PA-C Summary Hospital Course Discharge Diagnosis: s/p lumbar fusion Hospital Course: Mr Roche's hospital course was remarkable for difficulty with pain control. On POD# 2 he was feeling better and wanted to discharge; he had no help at home, and the plan was to have his mother secure a hotel room for him close to her so she could help him. He was eating and voiding without difficulty. His pain was adequately controlled with a combination of Tylenol, oxycodone, dilaudid, and cyclobenzaprine. He was evaluated and treated by PT throughout his stay. Exam Vital Signs (past 8 hours): - 01/11/22 08:00 01/11/22 08:24 Temperature 98.5 F Pulse Rate 78 78 Respiratory Rate 16 Blood Pressure 126/77 126/77 Pulse Oximetry 95 Oxygen Delivery Method Nasal Cannula Oxygen Flow Rate 0 Narrative Exam Narrative: AA&O x 3. 5/5 strength in quadriceps, hamstrings, DF, PF, and EHL bilaterally. Sensation to light touch intact throughout BLE. Calves soft, compressible, nontender, and without palpable cords or masses. Low back dressing CDI. [facility] Medical History (Updated 01/01/22 @ 11:39 by Mery Moe RN) ADD (attention deficit disorder) without hyperactivity HTN (hypertension) Kidney stones Surgical History (Updated 01/10/22 @ 07:57 by Melanie Schreiber PA-C) History of excision of pilonidal cyst Hx of appendectomy Hx of hernia repair Hx of lithotripsy Social History household members: friend(s) Smoking Status: Former smoker alcohol intake: current Discharge Assessment & Plan Assessment and Plan Assessment: POD# 2 s/p L5-S1 transforaminal lumbar interbody fusion. Recovery as expected. Plan of Treatment: Discharge home. Discharge Plan Discharge Plan Patient Disposition: Home Discharge orders & Medications Prescriptions: New acetaminophen 325 mg Tablet 650 mg PO Q6HR PRN (Reason: Pain, Mild (1-3)) Qty: 120 2RF docusate sodium 100 mg Capsule 100 mg PO BID PRN (Reason: constipation) Qty: 60 2RF oxycodone 5 mg tablet 5 mg PO Q4H PRN (Reason: pain (scale score 7-10)) Qty: 60 0RF cyclobenzaprine 10 mg tablet 10 mg PO TID PRN (Reason: muscle spasm) Qty: 90 0RF hydromorphone [Dilaudid] 2 mg tablet 2 mg PO Q6H PRN (Reason: pain, severe) Qty: 10 0RF Continued dextroamphetamine-amphetamine [Adderall] 20 mg Tablet 20 mg PO DIRECTED 0RF Label Comments: 40mg qam, 20mg qpm Rx Instructions: administer doses at least 4-6 hours apart lisinopril 5 mg Tablet 5 mg PO DAILY 0RF hydrochlorothiazide 25 mg Tablet 25 mg PO DAILY 0RF Discontinued acetaminophen 500 mg Tablet 1,000 mg PO BID 0RF Follow up/Referrals: Forest Milton DO, MS [Primary Care Provider] - Gustavo Hartley MD [Physician] - As previously scheduled (Follow up with Dr Hartley on 01/24/2022 @ 10:50 at [facility] office in [place]) Diet/Activity/Treatments Diet: Diet as Tolerated Activity: Activity as tolerated. No deep bending (more than 90 degrees) or twisting at the waist. Cold/Heat Therapy: Use ice or a heating pad as needed for comfort. Skin/Wound/Dressing Care Dressing: May shower; keep incisions as dry as possible. No bathing or otherwise soaking incisions. Do not apply any creams, lotions, or ointments to incisions. Visit Report/Discharge Packet Instructions: DI for Prescription Opioid Use, DI for Transforaminal Lumbar Interbody Fusion Discharge Data Primary Care Provider: Forest Milton Attending Provider: Gustavo Hartley Quality VTE Deep Vein Thrombosis/Pulmonary Embolism Present on Admission: No
--- NOTE | 2022-01-11 14:26 | CM.DPNOTE ---
DC Note Patient cleared by therapy team for home w/friend and mom to assist. Patient does not have insurance at this time; will not qualify for HH services JW
== END 2022-01-11 10:25 | disposition home or self-care (01) ==
LOC: OR 16:40 → AC 16:40
PROVIDERS: Admitting Provider Orthopaedic Surgery Orthopaedic Surgery of the Spine; PCP Student in an Organized Health Care Education/Training Program; Referring Provider Orthopaedic Surgery Orthopaedic Surgery of the Spine; Visit Provider Orthopaedic Surgery Orthopaedic Surgery of the Spine
PROC: (CPT 22633; principal; 2022-01-09 11:45)
DX: M48.061 Spinal stenosis, lumbar region without neurogenic claudication (principal); M43.16 Spondylolisthesis, lumbar region; M54.16 Radiculopathy, lumbar region; I10 Essential (primary) hypertension
CPT/HCPCS: 22633; 63052; 22853; 22840; 20939; 72100; 76000; 82962; 97116; 97161; 97165; 97530; 97535; 99406; G0378; C1713; C1831; C9290; J0171; J0330; J0690; J1100; J1170; J2405; J2704; J3010